=== PATIENT | male | born 1970 | race Caucasian/White ===

== ENCOUNTER 2021-08-07 13:57 | Emergency (ER) | payer SELFPAY ==
[2021-08-07] MEDS ORDERED: Lidocaine 1% 10 ML MDV INJECT ONE (14:08)
[2021-08-07] MEDS ORDERED: Diphtheria,Pertussis(Acell),Tetanus Vaccine 0.5 ML Syringe IM ONE (14:15)
== END 2021-08-07 15:20 | disposition home or self-care (01) ==
LOC: JD.ED 13:57
DX: S61.212A Laceration without foreign body of right middle finger without damage to nail, initial encounter (principal); Z23 Encounter for immunization; W26.8XXA Contact with other sharp object(s), not elsewhere classified, initial encounter
CPT/HCPCS: 12001; 90471; 90715; 99283-25